=== PATIENT | female | born 1990 | race Caucasian/White ===

== ENCOUNTER 2016-11-28 17:55 | Emergency (ER) | payer OTHER ==
[~2016-11-28] VITALS: Ht 165.1 cm; Wt 81.6 kg
--- NOTE | 2016-11-28 18:29 | ED GENERAL ADULT ---
History of Present Illness General Chief Complaint: Female Urogenital Problems Stated Complaint: PT IS AND IS BLEEDING Source: patient Exam Limitations: no limitations Vital Signs & Intake/Output Vital Signs & Intake/Output Vital Signs Date Time Temp Pulse Resp B/P Pulse O2 O2 Flow FiO2 Ox Delivery Rate 11/28 2000 87 122/74 11/28 1801 98.4 92 16 153/80 99 Room Air Allergies Coded Allergies: fentanyl (HIVES 11/28/16) Triage Note: PT STATES SHE JUST RECENTLY FOUND OUT SHE WAS 5 WEEKS AND SHE BEGAN HAVING VAGINAL BLEEDING. PT STATES RED PINK VAGINAL BLEEDING SMALL AMOUNT. Triage Nurses Notes Reviewed? yes Onset: Abrupt Duration: hour(s): Timing: recent history : Yes Patient currently breastfeeds: No HPI: 11/28/16 6:50 PM This a 25-year-old female presents to the emergency department with an episode of scant vaginal spotting. The patient states that she's 4-6 weeks . Her last menstrual period was in early October. She DC'd oral contraceptives therapy in September 2016. She is a 1 para 0. Her only medications include albuterol. Her past medical history is significant for asthma. Past surgical history for arthroscopy of the wrist. She has no significant abdominal pain no dysuria no fever. The onset of the symptoms was abrupt, the duration was just today, the severity was significant as her symptoms required her to come to the emergency department for care. On physical exam her abdomen is soft and nontender. External vaginal exam revealed a minimal amount of dried blood on the external PAD. There is no active bleeding. (MAYNOR HUTTON DO) Reconcile Medications Albuterol Sulfate (Proair Hfa) 90 MCG HFA.AER.AD 2 PUF INH PRN ASTHMA ( Reported) (JOAQUÍN ALY MD) Past History Travel History Traveled to [place] past 21 day No Medical History Any Pertinent Medical History? see below for history Respiratory: asthma Surgical History Surgical History: non-contributory Psychosocial History What is your primary language [place] Tobacco Use: Never used ETOH Use: occasional use Illicit Drug Use: denies illicit drug use Family History Hx Contributory? No (MAYNOR HUTTON DO) Review of Systems Review of Systems Constitutional: Denies: fever. EENTM: Reports: no symptoms. Respiratory: Reports: no symptoms. Cardiovascular: Reports: no symptoms. GI: Denies: abdominal pain. Genitourinary: Reports: no symptoms. Musculoskeletal: Reports: no symptoms. Skin: Reports: no symptoms. Neurological/Psychological: Reports: no symptoms. Hematologic/Endocrine: Reports: no symptoms. Immunologic/Allergic: Reports: no symptoms. (MAYNOR HUTTON DO) Review of Systems All Other Systems: Reviewed and Negative (HSEEBA STANTON,JOAQUÍN) Physical Exam Physical Exam General Appearance: well developed/nourished, alert, awake, anxious, mild distress Head: atraumatic, normal appearance Eyes: Bilateral: normal appearance, PERRL, EOMI. Ears, Nose, Throat: normal pharynx, normal ENT inspection Neck: normal inspection, supple Respiratory: normal breath sounds, chest non-tender, no respiratory distress Cardiovascular: regular rate/rhythm Peripheral Pulses: 4+ radial (R), 4+ radial (L) Gastrointestinal: non-tender Back: normal range of motion Extremities: no edema Neurologic/Psych: no motor/sensory deficits, awake, alert, oriented x 3 Skin: intact, normal color, warm/dry Comments: External pelvic exam. No vaginal bleeding. Core Measures ACS in differential dx? No CVA/TIA Diagnosis: No Severe Sepsis Present: No Septic Shock Present: No (MAYNOR HUTTON DO) Progress Differential Diagnoses I considered the following diagnoses in my evaluation of the patient: [Ectopic , threatened ] Plan of Care: Orders Procedure Date/time Status Add-on Test (ER Only) 11/28 185 Active HUMAN BETA HCG TITRE 11/28 183 Complete HUMAN BETA HCG SCREEN 11/28 1817 Complete COMPREHENSIVE METABOLIC PANEL 11/28 1817 Complete CBC WITHOUT DIFFERENTIAL 11/28 1817 Complete Laboratory Tests 11/28/16 183: Anion Gap 12, Estimated GFR > 60, BUN/Creatinine Ratio 12.9, Glucose 87, Calcium 9.9, Total Bilirubin 0.7, AST 38 H, ALT 64 H, Alkaline Phosphatase 63, Total Protein 7.4, Albumin 4.4, Globulin 3.0, Albumin/Globulin Ratio 1.5, Beta HCG, Quant 550.2, Total Beta HCG POSITIVE, CBC w Diff NO MAN DIFF REQ, RBC 4.93, MCV 85.6, MCH 28.9, RDW 12.4, MPV 8.2, Gran % 64.8, Lymphocytes % 25.1, Monocytes % 6.2, Eosinophils % 3.6, Basophils % 0.3, Absolute Granulocytes 6.0, Absolute Lymphocytes 2.3, Absolute Monocytes 0.6, Absolute Eosinophils 0.3, Absolute Basophils 0, PUBS MCHC 33.7 Initial ED EKG: none (MAYNOR HUTTON DO) Departure Departure Condition: Stable Departure Forms: Customer Survey General Discharge Information Comments 11/28/16 7 PM The patient was signed out to Dr. Aly. Follow the labs. (MAYNOR HUTTON DO) Departure Time of Disposition: 1944 Disposition: HOME OR SELF CARE Clinical Impression Primary Impression: Threatened in first trimester Referrals: BRYAN RAINES MD Follow up with your cosmetics presser or Dr. Raines for repeat HCG testing in 2 days. (JOAQUÍN ALY MD) Critical Care Note Critical Care Note Critical Care Time: non-applicable (MAYNOR HUTTON DO)
[2016-11-28 18:55] LABS: ABSOLUTE BASOPHIL COUNT 0 /CUMM (0.0-0.2); ABSOLUTE EOSINOPHIL COUNT 0.3 /CUMM (0.0-0.7); ABSOLUTE LYMPH COUNT 2.3 /CUMM (1.2-3.4); ABSOLUTE MONOCYTE COUNT 0.6 /CUMM (0.10-0.60); BASOPHIL % 0.3 % (0.0-2.0); EOSINOPHIL % 3.6 % (0-5); GRANULOCYTE % 64.8 % (42.2-75.2); HEMATOCRIT 42.2 % (37-47); MEAN CORPUSCULAR HGB 28.9 PG (27.0-31.0); MEAN CORPUSCULAR HGB CONC 33.7 G/DL (33.0-37.0); MEAN CORPUSCULAR VOLUME 85.6 FL (81.0-99.0); MEAN PLATELET VOLUME 8.2 FL (7.4-10.4); PLATELET COUNT 292 /CUMM (130-400); RBC DISTRIBUTION WIDTH 12.4 % (11.5-14.5); RED BLOOD CELL CT 4.93 /CUMM (4.20-5.40); WHITE BLOOD CELL COUNT 9.2 /CUMM (4.8-10.8)
[2016-11-28] MEDS ORDERED: PROAIR HFA8.5 GM INH (19:31)
[2016-11-28 20:01] VITALS: BP 122/74
== END 2016-11-28 20:01 ==
LOC: ERH 17:55
PROVIDERS: Emergency Medicine
DX: O20.0 Threatened abortion (principal)

== ENCOUNTER 2017-12-20 10:51 | Emergency (ER) | payer OTHER ==
[~2017-12-20] VITALS: Ht 165.1 cm; Wt 81.6 kg
[~2017-12-20 10:51] MED LIST: PROAIR HFA8.5 GM INH
[2017-12-20 12:04] LABS: ABSOLUTE BASOPHIL COUNT 0 /CUMM (0.0-0.2); ABSOLUTE EOSINOPHIL COUNT 0.2 /CUMM (0.0-0.7); ABSOLUTE GRANULOCYTE CT 8.5 /CUMM (1.4-6.5); ABSOLUTE LYMPH COUNT 2.4 /CUMM (1.2-3.4); ABSOLUTE MONOCYTE COUNT 0.6 /CUMM (0.10-0.60); BASOPHIL % 0.3 % (0.0-2.0); GRANULOCYTE % 71.8 % (42.2-75.2); MEAN CORPUSCULAR HGB 28.9 PG (27.0-31.0); MEAN CORPUSCULAR HGB CONC 32.6 G/DL (33.0-37.0); MEAN CORPUSCULAR VOLUME 88.5 FL (81.0-99.0); MEAN PLATELET VOLUME 8.6 FL (7.4-10.4); PLATELET COUNT 281 /CUMM (130-400); RBC DISTRIBUTION WIDTH 12.9 % (11.5-14.5); RED BLOOD CELL CT 4.97 /CUMM (4.20-5.40); WHITE BLOOD CELL COUNT 11.8 /CUMM (4.8-10.8)
--- NOTE | 2017-12-20 12:07 | ED GI/GU/ABDOMINAL COMPLAINT ---
History of Present Illness General Chief Complaint: Abdominal Pain/Flank Pain Stated Complaint: ABDOMINAL PAIN, + TEST Source: patient, family Exam Limitations: no limitations Vital Signs & Intake/Output Vital Signs & Intake/Output Vital Signs Date Time Temp Pulse Resp B/P B/P Pulse O2 O2 Flow FiO2 Mean Ox Delivery Rate 12/20 1540 98.8 76 18 120/60 98 Room Air 12/20 1324 99.0 78 18 128/58 97 Room Air 12/20 1123 97.1 94 16 137/86 98 Room Air Allergies Coded Allergies: fentanyl (HIVES 11/28/16) Reconcile Medications Albuterol Sulfate (Proair Hfa) 90 MCG HFA.AER.AD 2 PUF INH PRN ASTHMA ( Reported) Triage Note: PT TO ER C/O ABD PAIN, PT RECENTLY FOUND OUT SHE WAS . PT DOES NOT KNOW HOW FAR ALONG SHE IS.. PT DOES STATE THAT SHE HAD A MISCARRIAGE LAST YEAR. Triage Nurses Notes Reviewed? yes ? Y Is pt currently ? No HPI: 27 yo F presenting with abdominal pain and (+) home test. Patient states that her last menstrual period was 11/25/17, took test this morning, found to be (+). This morning while the patient and her significant other were having intercourse she developed some mild suprapubic cramping that persisted briefly following cessation of intercourse, absent currently, mild intensity, non-radiating, unclear precipitating/palliating factors, similar pain with miscarriage 1 year ago. Denies associated fevers, chills, chest pain, SOB, palpitations, nausea, vomiting, diarrhea, constipation, bloody stools, vaginal discharge, vaginal bleeding, urinary Sx. Past History Travel History Traveled to [place] past 21 day No Medical History Any Pertinent Medical History? see below for history Respiratory: asthma Surgical History Surgical History: non-contributory Psychosocial History What is your primary language Malian Tobacco Use: Never used Family History Hx Contributory? No Review of Systems Review of Systems Constitutional: Reports: no symptoms. EENTM: Reports: no symptoms. Respiratory: Reports: no symptoms. Cardiovascular: Reports: no symptoms. GI: Reports: see HPI. Genitourinary: Reports: see HPI. Musculoskeletal: Reports: no symptoms. Skin: Reports: no symptoms. Neurological/Psychological: Reports: no symptoms. Hematologic/Endocrine: Reports: no symptoms. Immunologic/Allergic: Reports: no symptoms. All Other Systems: Reviewed and Negative Physical Exam Physical Exam General Appearance: well developed/nourished, no apparent distress, alert, awake Eyes: Bilateral: PERRL, EOMI. Ears, Nose, Throat, Mouth: moist mucous membrane Neck: normal inspection, full range of motion, no midline tenderness Respiratory: normal breath sounds, no respiratory distress, lungs clear Cardiovascular: regular rate/rhythm Gastrointestinal: soft, non-tender Comments: Abdomen: Soft and non-TTP throughout Core Measures ACS in differential dx? No Sepsis Present: No Sepsis Focused Exam Completed? No Progress Differential Diagnosis: AAA, AMI, appendicitis, biliary colic, bowel obstruction , colon cancer, cholecystitis, diverticulitis, ectopic , endometritis, esophageal varices, gastritis, hepatitis, hernia, hemorrhoids, ischemic bowel, inflamm bowel dis, intrauterine , kidney stone, Stefany-Fatuma tear, ovarian cyst, ovarian torsion, pancreatitis, PID/cervicitis, peptic ulcer, PUD/ GERD, perforated viscous, SBO, threatened AB, UTI/pyelo Plan of Care: Orders Procedure Date/time Status URINALYSIS 12/20 1113 Complete HUMAN BETA HCG TITRE 12/20 1113 Complete COMPREHENSIVE METABOLIC PANEL 12/20 1113 Complete CBC WITHOUT DIFFERENTIAL 12/20 1113 Complete Laboratory Tests 12/20/17 1135: Anion Gap 12, Estimated GFR > 60, BUN/Creatinine Ratio 15.0, Glucose 93, Calcium 9.4, Total Bilirubin 0.7, AST 15, ALT 29, Alkaline Phosphatase 48, Total Protein 6.9, Albumin 4.2, Globulin 2.7, Albumin/Globulin Ratio 1.6, Beta HCG, Quant 16.1 , CBC w Diff NO MAN DIFF REQ, RBC 4.97, MCV 88.5, MCH 28.9, MCHC 32.6 L, RDW 12.9, MPV 8.6, Gran % 71.8, Lymphocytes % 20.6, Monocytes % 5.3, Eosinophils % 2.0, Basophils % 0.3, Absolute Granulocytes 8.5 H, Absolute Lymphocytes 2.4, Absolute Monocytes 0.6, Absolute Eosinophils 0.2, Absolute Basophils 0, Urine Color YEL, Urine Clarity CLEAR, Urine pH 8.0, Ur Specific [place] 1.020, Urine Protein NEG, Urine Ketones NEG, Urine Nitrite NEG, Urine Bilirubin NEG, Urine Urobilinogen 1.0, Ur Leukocyte Esterase NEG, Ur Microscopic EXAM NOT REQUIRED, Urine Hemoglobin NEG, Urine Glucose NEG Physician MDM: 27 yo F presenting with abdominal pain in early . VSS, HR 70s, BP stable, abdominal exam benign. DDx: Early , Threatened , Ectopic , UTI, less likely appendicitis, ovarian torsion or other surgical abdominal pathiology given benign abdominal exam. CBC with Hgb 11.8, improved from baseline. BMP unremarkable. UA without evidence of blood or infection. B-hCG 16, unable to visualized definitive IUP on bedside U/S or TVUS, only trace fluid. Discussed with patients OBGYN Dr. Orellana, plan for follow up as scheduled on Friday for repeat b-hCG. On re-examination patient resting comfortably, abdominal exam remains benign. Pelvic rest and return precautions (including worsening pain, vaginal bleeding, or dizziness) discusssed with patient. Discharged with return precuations, plan for close f/u with OB. Initial ED EKG: none Departure Departure Disposition: HOME OR SELF CARE Condition: Stable Clinical Impression Primary Impression: Threatened miscarriage in early Referrals: Dk Calix MD Additional Instructions: Follow up with Dr. Franco as scheduled on friday for repeat b-HCG testing. Return to the ED for worsening pain, vaginal bleeding, dizziness, or passing out. Do not engage in sexual intercourse, observe pelvic rest until you follow up with your OBGYN. Return to the ED for any new, worsening, or concerning symptoms. Departure Forms: Customer Survey General Discharge Information
--- NOTE | 2017-12-20 13:46 | ULTRASOUND REPORT ---
EXAMINATION: US PELVIS ULTRASOUND CLINICAL INFORMATION: , lower abdominal pain. Age 27. COMPARISON: None TECHNIQUE: Ultrasound of the pelvis is performed using both transabdominal and transvaginal transducers along with Doppler. FINDINGS: Uterus: The uterus is retroverted and measures approximately 9.0 x 4.6 x 5.9 cm. The cervical length is 2.5 cm. The double wall endometrial thickness is 1.4 mm. There is no intrauterine gestational sac or fluid in the endometrial cavity. The myometrium is uniform in echogenicity. No visible fibroid. Adnexa: Right ovary measures 4.1 x 2.4 x 2.3 cm. Left ovary measures 3.4 x 2.1 x 2.0 cm. There is normal color flow to the bilateral adnexa. No ovarian torsion. A post inflammatory corpus luteum is seen within the right ovary measuring approximately 2 cm. There is small amount of fluid with transvaginal imaging seen in the cul-de-sac. There is no visible ectopic or suspicious adnexal mass. IMPRESSION: 1. Uterus: No intrauterine or fluid in uterine cavity. Retroverted uterus. 2. Adnexa: 2 cm corpus luteum within right ovary. Small amount of fluid cul-de-sac. No visible ectopic or suspicious adnexal mass. No ovarian torsion.
[2017-12-20 15:40] VITALS: BP 120/60
== END 2017-12-20 16:02 ==
LOC: ERH 10:51
PROVIDERS: Physician Assistant Medical
DX: O20.0 Threatened abortion (principal)
CPT/HCPCS: 76817; 81003